=== PATIENT | female | born 1975 | race Caucasian/White ===

== ENCOUNTER 2017-06-16 15:48 | Emergency (ER) | payer SELFPAY | END 2017-06-16 16:00 | disposition left against medical advice (07) | LOC: ER 15:48 | DX: Z20.3 Contact with and (suspected) exposure to rabies (principal); Z53.21 Procedure and treatment not carried out due to patient leaving prior to being seen by health care provider ==

== ENCOUNTER 2017-08-12 11:07 | Emergency (ER) | payer OTHER ==
[~2017-08-12] VITALS: Ht 167.6 cm; Wt 63.0 kg
[2017-08-12 11:44] VITALS: BP 126/58
[2017-08-12] MEDS ORDERED: diphenhydrAMINE HCL 25 MG CAPSULE PO ONE (12:15)
[2017-08-12] MEDS ORDERED: predniSONE 20 MG TABLET PO ONE (12:15)
--- NOTE | 2017-08-12 12:39 | PHYS DOC ---
Past Medical History Past Medical History: No Pertinent History Past Surgical History: Appendectomy, , Tonsillectomy Alcohol Use: None Drug Use: None Adult General Chief Complaint Chief Complaint: ALLERGIC REACTION HPI HPI Patient is a 41 year old female presents to the emergency department stating that on Sunday she believes she was stung by some type of insect. She states on Sunday morning when she woke up she has hives throughout her body. She states that she's been taken Benadryl with some relief however she is only been taken Benadryl twice to 3 times a day. Patient states that she has just finished a round of antibiotics approximately 5 days ago. Patient denies any shortness of breath or difficulty breathing patient states that she feels as though her throat may be closing off. Patient states that her last dose of Benadryl was approximately 8:15 this morning. Review of Systems Review of Systems Constitutional: Denies fever or chills [] Eyes: Denies change in visual acuity, redness, or eye pain [] HENT: Denies nasal congestion or sore throat [] Respiratory: Denies cough or shortness of breath [] Cardiovascular: No additional information not addressed in HPI [] GI: Denies abdominal pain, nausea, vomiting, bloody stools or diarrhea [] : Denies dysuria or hematuria [] Musculoskeletal: Denies back pain or joint pain [] Integument: Denies rash or skin lesions. Complaint of hives throughout the body. Neurologic: Denies headache, focal weakness or sensory changes [] Endocrine: Denies polyuria or polydipsia [] Current Medications Current Medications Current Medications Medications (Trade) Dose Ordered Sig/Misha Start Time Stop Time Status Last Admin Dose Admin Diphenhydramine HCl (Benadryl) 25 mg 1X ONCE 08/12/17 12:15 08/12/17 12:18 DC 08/12/17 12:27 25 MG Famotidine (Pepcid) 20 mg 1X ONCE 08/12/17 12:45 08/12/17 12:46 DC Prednisone (Prednisone) 40 mg 1X ONCE 08/12/17 12:15 08/12/17 12:18 DC 08/12/17 12:27 40 MG Allergies Allergies Allergies Coded Allergies Type Severity Reaction Last Updated Verified Penicillins Allergy Intermediate Hives 08/12/17 Yes levofloxacin Allergy Mild 08/12/17 Yes Physical Exam Physical Exam Constitutional: Well developed, well nourished, no acute distress, non-toxic appearance. [] HENT: Normocephalic, atraumatic, bilateral external ears normal, oropharynx moist, no oral exudates, nose normal. Throat appears slightly red. No swelling noted. Eyes: PERRLA, EOMI, conjunctiva normal, no discharge. [] Neck: Normal range of motion, no tenderness, supple, no stridor. [] Cardiovascular:Heart rate regular rhythm, no murmur [] Lungs & Thorax: Bilateral breath sounds clear to auscultation [] Abdomen: Bowel sounds normal, soft, no tenderness, no masses, no pulsatile masses. [] Skin: Warm, dry, no erythema, no rash. Patient with hives noted throughout her back area. Extremities: No tenderness, no cyanosis, no clubbing, ROM intact, no edema. [] Neurologic: Alert and oriented X 3, normal motor function, normal sensory function, no focal deficits noted. [] Psychologic: Affect normal, judgement normal, mood normal. [] Current Patient Data Vital Signs Vital Signs Date Time Temp Pulse Resp B/P (MAP) Pulse Ox O2 Delivery O2 Flow Rate FiO2 08/12/17 11:44 98.2 84 18 126/58 (80) 99 Room Air 98.2 EKG EKG [] Radiology/Procedures Radiology/Procedures [] Course & Med Decision Making Course & Med Decision Making Pertinent Labs and Imaging studies reviewed. (See chart for details) Patient was provided with Benadryl and Solu-Medrol here in the emergency department. 1300 patient was reexamined with patient stating that she does not feel as though her throat is closing off more. Patient will be provided with Pepcid here in the emergency department. She'll be discharged home with recommendations for Benadryl 25 mg every 6 hours. She was instructed this medication will cause drowsiness do not take any be alert and oriented. Patient was also provided with a prescription for prednisone 40 mg daily for the next 7 days in which she'll start tomorrow. Patient was also encouraged take Pepcid for the next 7 days as well. Patient was recommended not to take sulfa at this point in time as it is unclear as to whether the Bactrim as the cause of the rash or if it was an allergic reaction to the bug sting. Patient was provided with discharge instructions treatment regimens and follow-up recommendations. Signs and symptoms to return back to emergency department as provided. All questions and concerns been answered at patient's bedside. [] Dragon Disclaimer Dragon Disclaimer This electronic medical record was generated, in whole or in part, using a voice recognition dictation system. Departure Departure Impression: Primary Impression: Allergic reaction Disposition: HOME, SELF-CARE Condition: STABLE Referrals: ASUNCION OWENS Jr, MD (PCP) Patient Instructions: Allergies, Generic Additional Instructions: Activity as tolerated. Benadryl 25 mg every 6 hours for itching and irritation. This medication will cause drowsiness do not take any be alert and oriented. Keep the areas clean dry and cool. Medications prescribed. Follow-up to primary care physician in the next 3-5 days. Return back to emergency prior signs symptoms of become worse. Scripts Famotidine (PEPCID) 20 Mg Tablet 20 MG PO HS, #7 TAB Prov: IRVIN BARRETT APRN 08/12/17 Prednisone (PREDNISONE) 20 Mg Tablet 40 MG PO DAILY for 7 Days, #14 TAB Prov: IRVIN BARRETT APRN 08/12/17 Problem Qualifiers Primary Impression: Allergic reaction Encounter type: initial encounter Qualified Codes: T78.40XA - Allergy, unspecified, initial encounter IRVIN BARRETT APRN Aug 12, 2017 12:39
[2017-08-12] MEDS ORDERED: FAMOTIDINE 20 MG TABLET. PO ONE (12:45)
[2017-08-12] MEDS ORDERED: FAMO-63 PO (13:03)
[2017-08-12] MEDS ORDERED: PRED20TA PO (13:03)
== END 2017-08-12 13:11 | disposition home or self-care (01) ==
LOC: ER 11:07
DX: T78.40XA Allergy, unspecified, initial encounter (principal); Z88.0 Allergy status to penicillin; Z88.1 Allergy status to other antibiotic agents
CPT/HCPCS: 99284; J7512; Q0163